=== PATIENT | female | born 1965 | race Caucasian/White ===

== ENCOUNTER 2017-11-04 11:58 | Day surgery (SDC) | payer OTHER ==
[2017-11-04] MEDS ORDERED: MIDAZOLAM 1 MG/ML 2 ML INJ ×4 (15:06)
[2017-11-04] MEDS ORDERED: FENTAnyl 50 MCG/ML VIAL (15:07)
== END 2017-11-04 16:55 | disposition home or self-care (01) ==
LOC: GIL 11:58
DX: Z12.11 Encounter for screening for malignant neoplasm of colon (principal); K20.9 Esophagitis, unspecified; K29.70 Gastritis, unspecified, without bleeding; K57.90 Diverticulosis of intestine, part unspecified, without perforation or abscess without bleeding; K64.8 Other hemorrhoids
CPT/HCPCS: 43239; 84703; 88305; 88312; 88313